=== PATIENT | female | born 1950 | race Caucasian/White ===

== ENCOUNTER 2017-12-25 06:33 | Day surgery (SDC) | payer OTHER, MEDICARE ==
--- NOTE | 2017-12-23 14:58 | RAD REPORT ---
EXAM DESCRIPTION: RADOP - Outpt Chest Pa/Lat (2 Views) - 12/23/2017 2:53 pm CLINICAL HISTORY: Smoker, hypertension. COMPARISON: 04/17/2017 TECHNIQUE: PA and lateral views of the chest were obtained. FINDINGS: The lungs are hyperexpanded compatible with COPD. The heart is upper limit of normal in si ze. No fracture or aggressive bony process. IMPRESSION: COPD without acute process identified.
--- NOTE | 2017-12-24 08:01 | EKG ---
Test Date: 2017-12-23 Test Time: 14:37:22 Audio Production Manager: TG MEASUREMENT RESULTS: Intervals: Rate: 60 DE: 152 QRSD: 94 QT: 480 QTc: 480 [place]: P: 57 DE: 152 QRS: 74 T: 74 INTERPRETIVE STATEMENTS: Sinus rhythm with premature atrial complexes Left ventricular hypertrophy with repolarization abnormality Abnormal ECG No previous ECG available for comparison Electronically Signed On 12-24-17 07:59:40 CDT by Sid Sparrow
[2017-12-25] MEDS ORDERED: NA CHLORIDE 0.9% 500 ML ONE (06:35)
[2017-12-25] MEDS ORDERED: LIDOCAINE 1% 20 ML MDV ONE (06:35)
[2017-12-25] MEDS ORDERED: MIDAZOLAM HCL 2 MG/2 ML INJ ONE ×2 (07:17→07:46)
[2017-12-25] MEDS ORDERED: FENTANYL CITR 100 MCG/2 ML ONE (07:18)
[2017-12-25] MEDS ORDERED: ATROPINE SULF 1 MG/10 ML SYR IV ONE (07:20)
--- NOTE | 2017-12-27 17:54 | OP ---
Date of Procedure: 12/25/2017 Surgeon: Abram Mcfadden MD Child Support Specialist: Gladys Ortiz. Procedure Performed: Bilateral selective carotid angiogram, bilateral renal angiogram, selective an abdominal angiogram. Indication: Severe renal artery stenosis and positive carotid Doppler. Procedure In Detail: The patient brought to the landscape and yardwork laborer as an outpatient on 12/25/2017. Prepped an d draped in the routine sterile fashion and was given 4 mg of Versed for IV sedation. A 6-Martiniquais she ath was introduced in the right common femoral artery. Angiography there locally was within normal l imits and StarClose was used to close the case. Right Tammy catheter was used to select both carot ids. She had 90% stenosis in the internal carotid artery. The left carotid had moderate stenosis. Selective renal angiogram revealed severe stenosis in the ostial right renal artery as well as the le ft renal artery. Abdominal angiogram revealed severe stenosis in the right common iliac artery and d istal aorta. The patient tolerated the procedure well. There were no complications. Blood loss was 5 cc. Total conscious sedation was 45 minutes. Final Diagnosis: Severe cerebrovascular disease. Plan: We will plan right carotid endarterectomy. She has severe distal aorta, right common iliac, a nd bilateral renal artery stenosis. I will have the films reviewed by Dr. Raffy Jenkins, who will do her right carotid and considered to having her do a surgical procedure for her renals and her iliac as w ell as her distal aorta. I think the dye load to do these procedures will probably interfere with he r kidney function. The patient will be going home today and she will see me in the office in the next few day ibeth BANGURA/HUE Voice ID: [id number] Report ID: [id number]
== END 2017-12-25 13:49 | disposition home or self-care (01) ==
LOC: CCL 06:33
DX: I65.23 Occlusion and stenosis of bilateral carotid arteries (principal); I70.1 Atherosclerosis of renal artery; I70.201 Unspecified atherosclerosis of native arteries of extremities, right leg; I70.0 Atherosclerosis of aorta; I10 Essential (primary) hypertension; E78.5 Hyperlipidemia, unspecified
CPT/HCPCS: 36222; 36252; 71046; 75625; 93005; C1893; J2250 ×2; J3010; 36200

== ENCOUNTER 2021-07-16 08:12 | Day surgery (SDC) | payer OTHER, MEDICARE ==
--- NOTE | 2021-07-13 12:44 | RAD REPORT ---
EXAM DESCRIPTION: RAD - Chest Pa And Lat (2 Views) - 07/13/2021 12:27 pm CLINICAL HISTORY: pre-cath procedure COMPARISON: December 2017 TECHNIQUE: Frontal and lateral views of the chest were obtained. FINDINGS: The lungs are fibrotic with the pattern similar to prior imaging. No acute failure, infilt rate or mass. No hilar mass or lymphadenopathy identified. Heart size is normal and central vasculature is within normal limits. No pleural effusion or pneu mothorax seen. No acute bony finding noted. No aortic abnormality. IMPRESSION: No acute cardiopulmonary process. Above detailed chest findings not clearly different from 2018 study.
[2021-07-16] MEDS ORDERED: NA CHLORIDE 0.9% 500 ML ONE (10:01)
[2021-07-16] MEDS ORDERED: HEPA 1000U/500MLS 1,000 UNIT/500 ML BAG IV ONE ×2 (10:35→10:36)
[2021-07-16] MEDS ORDERED: LIDOCAINE 1% 20 ML MDV ONE (10:35)
[2021-07-16] MEDS ORDERED: MIDAZOLAM HCL 2 MG/2 ML INJ ONE ×2 (10:45→11:04)
[2021-07-16] MEDS ORDERED: HEPARIN 5000 UNIT/ML 1 ML VIAL ONE (10:45)
[2021-07-16] MEDS ORDERED: FENTANYL CITR 100 MCG/2 ML ONE (10:45)
[2021-07-16] MEDS ORDERED: ATROPINE SULF 1 MG/10 ML SYR IV ONE (10:46)
[2021-07-16 15:13] VITALS: O2SAT 96
[2021-07-16 15:15] VITALS: BP 154/60; TEMP 98.2
--- NOTE | 2021-08-15 08:53 | OP ---
Date of Procedure: 07/16/2021 Surgeon: Abram Mcfadden MD Ip Attorney: Mr. Christiansen. Procedure: Abdominal angiogram. Indication: Peripheral arterial disease, known distal aortic stenosis. Procedure In Detail: The patient was brought to the labor and delivery nurse on 07/16/2021, prepped and draped in th e routine sterile fashion. Given Versed and fentanyl for sedation. A 6-English sheath introduced in the right common femoral artery successfully. Angiography there was normal. Seldinger technique was used. Angio-Seal was used to close the case. A pigtail catheter was advanced over the distal aorta up to about T12 level. Angiography there showed a 90% bilateral stenosis of the renal artery. She had a 90% stenosis of the distal aorta. The patient tolerated the procedure well. There were no com plications. Blood loss was 5 cc. Postoperative Diagnoses: Peripheral arterial disease, severe distal aortic disease, severe bilateral renal artery stenosis. The patient is normotensive. We will proceed with an intervention as an outpatient for distal aorta with an angioplasty, possible stent. I will discuss the case further with Dr. Teixeira. The patient w ill remain in the hospital for 2 hours of bedrest and she will go home and I will make arrangements f or her intervention as an outpatient. Anesthesia: Total conscious sedation was 30 minutes. NB/MODL Voice ID: [id number] Report ID: [id number]
== END 2021-07-16 12:52 | disposition home or self-care (01) ==
LOC: CCL 08:12
DX: I70.0 Atherosclerosis of aorta (principal); I70.1 Atherosclerosis of renal artery; I73.9 Peripheral vascular disease, unspecified; I65.23 Occlusion and stenosis of bilateral carotid arteries; I35.1 Nonrheumatic aortic (valve) insufficiency; I10 Essential (primary) hypertension; E78.2 Mixed hyperlipidemia; F17.210 Nicotine dependence, cigarettes, uncomplicated; Z20.822 Contact with and (suspected) exposure to COVID-19; Z82.49 Family history of ischemic heart disease and other diseases of the circulatory system
CPT/HCPCS: 93005; 71046; 36200; 75630; U0003; C1893; J2250 ×2; J3010; J7040; J1644 ×2

== ENCOUNTER 2021-08-21 09:43 | Observation (INO) | payer OTHER, MEDICARE ==
--- OUTSIDE RECORDS SUMMARY | 2021-08-21 09:46 | XMS REPORT | Continuity of Care Document ---
:1950 Author Organization [facility] t Address [address] [place] [address] Care Team Providers Name Role Phone Puneet Attending Clinician Unavailable NICOLE JENKINS Attending Clinician Unavailable Bev Lin Admitting Clinician Unavailable NICOLE JENKINS Admitting Clinician Unavailable Payers Payer Name Policy Type Policy Number Effective Date Expiration Date S ource Problems This patient has no known problems. Allergies, Adverse Reactions, Alerts Allergy Allergy Status Severity Reaction(s) Onset Inactive Treating Comm ents Source Name Type Date Date Clinician No Known DA Active U 2020-09 [facility] Allergie 09-26 Clear s 00:00: Bone [address] [place] [address] Medications This patient has no known medications. Procedures This patient has no known procedures. Encounters Start End Encounter Admission Attending Care Care Encounter Source Date/Time Date/Time Type Type Clinicians Facility Department ID 2021-07-27 Inpatient AJ Ambrose OUTD [id number] [facility] 13:30:00 Jose R [id number] [facility] 2021 2021 Outpatient MJ AmbroseFAN OUTD [id number] [facility] 05:20:00 05:20:00 Jose R [id number] [facility] 2021 2021 Outpatient AJ AmbroseCL [id number] [facility] 05:20:00 05:20:00 Jose R 98 [facility] Results Test Description Test Time Test Comments Results Result Comments Source ACT-ISTAT 2021 09:54:00 Test Item Value Reference Range Interpretation Comme nts ACT-ISTAT (test code = ACTI) 243 SEC 74-137 H Performed by certified diesel plant operator at [facility] [id number] 09:15:00 Test Item Value Reference Range Interpretation Comments ACT-ISTAT (test code 261 SEC 74-137 H Perform ed by certified = ACTI) diesel plant operator at [facility] Novel Coronavirus 2019 [id number] 03:32:00 Test Item Value Reference Range Interpretation Comments Novel Coronavirus Negative Negative Positive r esults are 2019 Inhouse (test indicativ e of the presence code = COVNONPUI) ofSARS-CoV -2 RNA, clinical correlation wit h patient historyand othe r diagnostic info rmation is necessary to determinepatien t infection status. Positiv e results do not rule out bacterial infection or co -infection with other viru ses. Negative result s do not preclude SARS-C oV-2 infection andsh ould not be used as the jose e basis for patient managementdecis ions. Negative result s must be combined with otherclinical observations, p atient history, and epidemiological information . Detection of SARS-CoV-2 RNA may be affe cted bysample collec tion methods, storag e conditions, and /or stageof infection. Monserrat l RNA mutations, vacc inations, antiviraltherap eutics, antibiotics, chemotherapeuti c orimmunosuppres mitali drugs have not been e valuated for effectson d etection. Results are for the identification of SARS-CoV-2 RNA usingthe Prieto M2000 Sy stem under the FDA Emergen cy UseAuthorizatio n. The testing is perf ormed by personneltraine d in the procedures for the Prieto M2000 molecular diagnostic SARS-CoV-2 assa y in vitro. BASIC METABOLIC [id number] 16:06:00 Test Item Value Reference Range Interpretation Comments SODIUM (test code = NA) 139 mEq/L 134-147 N POTASSIUM (test code = 3.0 mEq/L 3.4-5.0 L K) CHLORIDE (test code = 101 mEq/L 100-108 N CL) CARBON DIOXIDE (test 28 mEq/l 21-33 N code = CO2) ANION GAP (test code = 13 0-20 N GAP) GLUCOSE (test code = 168 mg/dL 70-110 H GLU) BLOOD UREA NITROGEN 10 mg/dL 7-18 N (test code = BUN) GLOMERULAR FILTRATION 83.0 80-90 N Units of measure = RATE (test code = GFR) ml/mi n/1.73 m2 CREATININE (test code = 0.7 mg/dL 0.6-1.3 N CREAT) CALCIUM (test code = 9.6 mg/dL 8.0-10.5 N CA) PROTHROMBIN [id number] 15:54:00 Test Item Value Reference Range Interpretation Comments PROTHROMBIN TIME 11.6 SECONDS 9.3-12.9 N PATIENT (test code = PTP) INTERNATIONAL NORMAL 1.0 0.8-1.2 N TARGET RATIO (test code = INR BY IN DICATION INR) Indication INR1. Prophyl axis of venous thrombos is 2.0 - 3. 0 (orthopedic patricia lilli), Prophylaxis of venous thrombos is (other than hig h-risk surgery), Essence tment of Deep Vein Thrombosis/Pulm onary Embolism, Preve ntion of systemic emb olism - Tissue heart va lves, Acute Myocardia l Infarction (to prevent systemic embo lism), Valvular heart disease, Atri al Fibrillation, Bileaflet mecha nical valve in aortic position.2. Mec hanical prosthetic valv es (high risk), 2.5 - 3.5 Presence of Lupus Anticoagu lant or Antiphospholi pid Antibodies, Pre vention of systemic e mbolism - Acute Myocard ial Infarction (t o prevent recurre nt infarct). CBC W/AUTO [id number] 15:48:00 Test Item Value Reference Range Interpretation Comments WHITE BLOOD CELL (test code = 6.0 x10 3/uL 4.5-11.0 N WBC) RED BLOOD CELL (test code = 4.18 x10 6/uL 3.54-5.02 N RBC) HEMOGLOBIN (test code = HGB) 9.4 g/dL 11.0-15.0 L HEMATOCRIT (test code = HCT) 31.7 % 33.0-45.0 L MEAN CELL VOLUME (test code = 75.8 fL 81.0-99.0 L MCV) MEAN CELL HGB (test code = MCH) 22.5 pg 27.0-33.0 L MEAN CELL HGB CONCETRATION 29.7 g/dL 33.0-37.0 L (test code = MCHC) RED CELL DISTRIBUTION WIDTH CV 18.1 % 11.5-14.5 H (test code = RDW) RED CELL DISTRIBUTION WIDTH SD 49.3 fL 37.0-54.0 N (test code = RDW-SD) PLATELET COUNT (test code = 425 x10 3/uL 150-400 H PLT) MEAN PLATELET VOLUME (test code 11.6 fL 7.0-9.0 H = MPV) NEUTROPHIL % (test code = NT%) 59.0 % 56.0-77.0 N IMMATURE GRANULOCYTE % (test 0.3 % 0.0-2.0 N code = IG%) LYMPHOCYTE % (test code = LY%) 27.8 % 14.0-32.0 N MONOCYTE % (test code = MO%) 9.7 % 4.8-9.0 H EOSINOPHIL % (test code = EO%) 2.5 % 0.3-3.7 N BASOPHIL % (test code = BA%) 0.7 % 0.0-2.0 N NUCLEATED RBC % (test code = 0.0 % 0-0 N NRBC%) NEUTROPHIL # (test code = NT#) 3.52 x10 3/uL 2.0-7.6 N IMMATURE GRANULOCYTE # (test 0.02 x10 3/uL 0.00-0.03 N code = IG#) LYMPHOCYTE # (test code = LY#) 1.66 x10 3/uL 1.0-3.8 N MONOCYTE # (test code = MO#) 0.58 x10 3/uL 0.1-0.8 N EOSINOPHIL # (test code = EO#) 0.15 x10 3/uL 0.0-0.2 N BASOPHIL # (test code = BA#) 0.04 x10 3/uL 0.0-0.2 N NUCLEATED RBC # (test code = 0.00 x10 3/uL 0.0-0.1 N NRBC#) MANUAL DIFF REQUIRED (test code NO = MDIFF) - XR CHEST 2 [id number] [facility]:00[facility] 1950 Sex: F FAX: Enrique Sheldon MD [phone] [place]: St: PRE FAX: Jose R Browning MD [phone] Name: ALLIE OROSCO [facility] : 1950 Age/S: 70/F [address] [place] [address] Unit #: [id number] Loc: [place] [address] Phys: Jose R Teixeira MD Acct: [id number] Dis Date: Status[place] [facility] [place] #: [phone] Exam Date: 07/27/20211520 FAX #: [phone] Reason: PREOP EXAMS: CPT CODE: [id number] XR CHEST 2 V [id number] PROCEDURE INFORMATION: Exam: XR Chest Exam date and time: 07/27/2021 2:55 PM Age: 70 years old Clinical indication: Condition or disease; Other: Pre op; Additional info: Preop TECHNIQUE: Imaging protocol: XR of the chest. Views: 2 views. PA and Lateral COMPARISON: No relevant prior studies available. FINDINGS: Lungs: Prominent interstitial pattern throughout both lungs is chronic in nature. No acute consolidation is identified. Pleural spaces: No pleural effusion. No pneumothorax. Heart/Mediastinum: The heart size is normal. Vasculature: Tortuous aorta contains calcifications. Bones/joints: No acute abnormality. IMPRESSION: No acute cardiopulmonary process. at 1542 Reported and signed by: Meek King M.D. CC: Enrique Lin MD; Jose R Teixeira MD Technologist: RT Kristy(R) Trnscrd Date/Time/By: 07/27/2021 ([id number]) : By: [email or web address] Orig Print D/T: S: 07/27/2021 ([id number]) PAGE 1 Signed ReportTISSUE EXAM 2018-01-20 13:42:00Surgical Pathology Report Case: [id number] Authorizing Provider: Raffy Jenkins MD Collected: 01/13/2018 0855 Ordering Location: [facility] Received: 01/13/2018 0937 PERIOPERATIVE SERVICES Pathologist: Petr Gallegos MD Specimen: Plaque, RT Carotid plaque ARTERY, RIGHT CAROTID, ENDARTERECTOMY:CALCIFIC ATHEROSCLEROTIC PLAQUE Signing Pathologist Direct Phone Line: [phone]; [phone] stenosis Right carotid plaque Specimen is received in a formalin- filled container labeled with the patient's information and labeled "right carotid plaque" and consists of an opened calcified tubular shaped segment of tissue measuring 2 cm in length and 1.5 cm in circumference. Food Products Sales Representative sections are submitted in A1 for decalcification. CG/ew PerformedPHOSPHORUS 2018-01-15 06:11:00 Test Item Value Reference Range Interpretation Comments PHOSPHORUS (BEAKER) (test code = 3.4 mg/dL 2.3-4.7 604) [id number] 06:11:00 Test Item Value Reference Range Interpretation Comments MAGNESIUM (BEAKER) (test code = 1.8 mg/dL 1.6-2.6 627) BASIC METABOLIC [id number] 06:11:00 Test Item Value Reference Range Interpretation Comments SODIUM (BEAKER) 139 meq/L 136-145 (test code = 381) POTASSIUM (BEAKER) 3.2 meq/L 3.5-5.1 L (test code = 379) CHLORIDE (BEAKER) 99 meq/L 98-107 (test code = 382) CO2 (BEAKER) (test 27 meq/L 22-29 code = 355) BLOOD UREA NITROGEN 7 mg/dL 7-21 (BEAKER) (test code = 354) CREATININE (BEAKER) 0.66 mg/dL 0.57-1.25 (test code = 358) GLUCOSE RANDOM 105 mg/dL 70-105 (BEAKER) (test code = 652) CALCIUM (BEAKER) 9.7 mg/dL 8.4-10.2 (test code = 697) EGFR (BEAKER) (test 90 mL/min/1.73 ESTIMA OZIEL GFR IS code = 1092) sq m NOT ACCURATE CREATININE CLEARANCE IN PREDICTING GLOMERULAR FILTRATION RATE . ESTIMATED GFR I S NOT APPLICABLE FOR DIALYSIS PATIEN TS. CBC W/PLT COUNT & AUTO [id number] 05:47:00 Test Item Value Reference Range Interpretation Comments WHITE BLOOD CELL COUNT (BEAKER) 8.5 K/ L 3.5-10.5 (test code = 775) RED BLOOD CELL COUNT (BEAKER) 3.87 M/ L 3.93-5.22 L (test code = 761) HEMOGLOBIN (BEAKER) (test code = 11.3 GM/DL 11.2-15.7 410) HEMATOCRIT (BEAKER) (test code = 35.6 % 34.1-44.9 411) MEAN CORPUSCULAR VOLUME (BEAKER) 92.0 fL 79.4-94.8 (test code = 753) MEAN CORPUSCULAR HEMOGLOBIN 29.2 pg 25.6-32.2 (BEAKER) (test code = 751) MEAN CORPUSCULAR HEMOGLOBIN CONC 31.7 GM/DL 32.2-35.5 L (BEAKER) (test code = 752) RED CELL DISTRIBUTION WIDTH 15.1 % 11.7-14.4 H (BEAKER) (test code = 412) PLATELET COUNT (BEAKER) (test 230 K/CU MM 150-450 code = 756) MEAN PLATELET VOLUME (BEAKER) 12.2 fL 9.4-12.3 (test code = 754) NUCLEATED RED BLOOD CELLS 0 /100 WBC 0-0 (BEAKER) (test code = 413) NEUTROPHILS RELATIVE PERCENT 67 % (BEAKER) (test code = 429) LYMPHOCYTES RELATIVE PERCENT 16 % (BEAKER) (test code = 430) MONOCYTES RELATIVE PERCENT 15 % (BEAKER) (test code = 431) EOSINOPHILS RELATIVE PERCENT 3 % (BEAKER) (test code = 432) BASOPHILS RELATIVE PERCENT 0 % (BEAKER) (test code = 437) NEUTROPHILS ABSOLUTE COUNT 5.69 K/ L 1.56-6.13 (BEAKER) (test code = 670) LYMPHOCYTES ABSOLUTE COUNT 1.32 K/ L 1.18-3.74 (BEAKER) (test code = 414) MONOCYTES ABSOLUTE COUNT (BEAKER) 1.23 K/ L 0.24-0.36 H (test code = 415) EOSINOPHILS ABSOLUTE COUNT 0.21 K/ L 0.04-0.36 (BEAKER) (test code = 416) BASOPHILS ABSOLUTE COUNT (BEAKER) 0.03 K/ L 0.01-0.08 (test code = 417) IMMATURE GRANULOCYTES-RELATIVE 0 % 0-1 PERCENT (BEAKER) (test code = 2801) [id number] 02:49:00 Test Item Value Reference Range Interpretation Comments MAGNESIUM (BEAKER) (test code = 1.7 mg/dL 1.6-2.6 627) BASIC METABOLIC [id number] 02:49:00 Test Item Value Reference Range Interpretation Comments SODIUM (BEAKER) 140 meq/L 136-145 (test code = 381) POTASSIUM (BEAKER) 3.1 meq/L 3.5-5.1 L (test code = 379) CHLORIDE (BEAKER) 102 meq/L 98-107 (test code = 382) CO2 (BEAKER) (test 26 meq/L 22-29 code = 355) BLOOD UREA NITROGEN 7 mg/dL 7-21 (BEAKER) (test code = 354) CREATININE (BEAKER) 0.67 mg/dL 0.57-1.25 (test code = 358) GLUCOSE RANDOM 97 mg/dL 70-105 (BEAKER) (test code = 652) CALCIUM (BEAKER) 9.6 mg/dL 8.4-10.2 (test code = 697) EGFR (BEAKER) (test 88 mL/min/1.73 ESTIMA OZIEL GFR IS code = 1092) sq m NOT ACCURATE CREATININE CLEARANCE IN PREDICTING GLOMERULAR FILTRATION RATE . ESTIMATED GFR I S NOT APPLICABLE FOR DIALYSIS PATIEN TS. CBC W/PLT COUNT & AUTO [id number] 02:35:00 Test Item Value Reference Range Interpretation Comments WHITE BLOOD CELL COUNT (BEAKER) 9.7 K/ L 3.5-10.5 (test code = 775) RED BLOOD CELL COUNT (BEAKER) 4.05 M/ L 3.93-5.22 (test code = 761) HEMOGLOBIN (BEAKER) (test code = 11.9 GM/DL 11.2-15.7 410) HEMATOCRIT (BEAKER) (test code = 37.4 % 34.1-44.9 411) MEAN CORPUSCULAR VOLUME (BEAKER) 92.3 fL 79.4-94.8 (test code = 753) MEAN CORPUSCULAR HEMOGLOBIN 29.4 pg 25.6-32.2 (BEAKER) (test code = 751) MEAN CORPUSCULAR HEMOGLOBIN CONC 31.8 GM/DL 32.2-35.5 L (BEAKER) (test code = 752) RED CELL DISTRIBUTION WIDTH 15.1 % 11.7-14.4 H (BEAKER) (test code = 412) PLATELET COUNT (BEAKER) (test 257 K/CU MM 150-450 code = 756) MEAN PLATELET VOLUME (BEAKER) 12.3 fL 9.4-12.3 (test code = 754) NUCLEATED RED BLOOD CELLS 0 /100 WBC 0-0 (BEAKER) (test code = 413) NEUTROPHILS RELATIVE PERCENT 65 % (BEAKER) (test code = 429) LYMPHOCYTES RELATIVE PERCENT 21 % (BEAKER) (test code = 430) MONOCYTES RELATIVE PERCENT 12 % (BEAKER) (test code = 431) EOSINOPHILS RELATIVE PERCENT 2 % (BEAKER) (test code = 432) BASOPHILS RELATIVE PERCENT 0 % (BEAKER) (test code = 437) NEUTROPHILS ABSOLUTE COUNT 6.30 K/ L 1.56-6.13 H (BEAKER) (test code = 670) LYMPHOCYTES ABSOLUTE COUNT 1.98 K/ L 1.18-3.74 (BEAKER) (test code = 414) MONOCYTES ABSOLUTE COUNT (BEAKER) 1.11 K/ L 0.24-0.36 H (test code = 415) EOSINOPHILS ABSOLUTE COUNT 0.22 K/ L 0.04-0.36 (BEAKER) (test code = 416) BASOPHILS ABSOLUTE COUNT (BEAKER) 0.03 K/ L 0.01-0.08 (test code = 417) IMMATURE GRANULOCYTES-RELATIVE 0 % 0-1 PERCENT (BEAKER) (test code = 2801) PROTHROMBIN [id number] 07:00:00 Test Item Value Reference Range Interpretation Comments PROTIME (BEAKER) (test code = 13.2 seconds 11.7-14.7 759) INR (BEAKER) (test code = 370) 1.0 <=5.9 RECOMMENDED COUMADIN/WARFARIN INR THERAPY RANGESSTANDARD DOSE: 2.0 - 3.0 Includes: PROPHYLAXIS forvenous thrombosis, systemic embolization; TREATMENT for venous thrombosis and/or pulmonary embolus.HIGH RISK: Target INR is 2.5-3.5 for patients with mechanical heart valves.BASIC METABOLIC [id number] 06:54:00 Test Item Value Reference Range Interpretation Comments SODIUM (BEAKER) 142 meq/L 136-145 (test code = 381) POTASSIUM (BEAKER) 2.9 meq/L 3.5-5.1 L (test code = 379) CHLORIDE (BEAKER) 101 meq/L 98-107 (test code = 382) CO2 (BEAKER) (test 27 meq/L 22-29 code = 355) BLOOD UREA NITROGEN 13 mg/dL 7-21 (BEAKER) (test code = 354) CREATININE (BEAKER) 0.63 mg/dL 0.57-1.25 (test code = 358) GLUCOSE RANDOM 96 mg/dL 70-105 (BEAKER) (test code = 652) CALCIUM (BEAKER) 9.8 mg/dL 8.4-10.2 (test code = 697) EGFR (BEAKER) (test 95 mL/min/1.73 ESTIMA OZIEL GFR IS code = 1092) sq m NOT ACCURATE CREATININE CLEARANCE IN PREDICTING GLOMERULAR FILTRATION RATE . ESTIMATED GFR I S NOT APPLICABLE FOR DIALYSIS PATIEN TS. CBC W/PLT COUNT & AUTO [id number] 06:34:00 Test Item Value Reference Range Interpretation Comments WHITE BLOOD CELL COUNT (BEAKER) 7.3 K/ L 3.5-10.5 (test code = 775) RED BLOOD CELL COUNT (BEAKER) 3.94 M/ L 3.93-5.22 (test code = 761) HEMOGLOBIN (BEAKER) (test code = 11.9 GM/DL 11.2-15.7 410) HEMATOCRIT (BEAKER) (test code = 35.6 % 34.1-44.9 411) MEAN CORPUSCULAR VOLUME (BEAKER) 90.4 fL 79.4-94.8 (test code = 753) MEAN CORPUSCULAR HEMOGLOBIN 30.2 pg 25.6-32.2 (BEAKER) (test code = 751) MEAN CORPUSCULAR HEMOGLOBIN CONC 33.4 GM/DL 32.2-35.5 (BEAKER) (test code = 752) RED CELL DISTRIBUTION WIDTH 14.8 % 11.7-14.4 H (BEAKER) (test code = 412) PLATELET COUNT (BEAKER) (test 242 K/CU MM 150-450 code = 756) MEAN PLATELET VOLUME (BEAKER) 11.9 fL 9.4-12.3 (test code = 754) NUCLEATED RED BLOOD CELLS 0 /100 WBC 0-0 (BEAKER) (test code = 413) NEUTROPHILS RELATIVE PERCENT 63 % (BEAKER) (test code = 429) LYMPHOCYTES RELATIVE PERCENT 22 % (BEAKER) (test code = 430) MONOCYTES RELATIVE PERCENT 10 % (BEAKER) (test code = 431) EOSINOPHILS RELATIVE PERCENT 4 % (BEAKER) (test code = 432) BASOPHILS RELATIVE PERCENT 0 % (BEAKER) (test code = 437) NEUTROPHILS ABSOLUTE COUNT 4.60 K/ L 1.56-6.13 (BEAKER) (test code = 670) LYMPHOCYTES ABSOLUTE COUNT 1.64 K/ L 1.18-3.74 (BEAKER) (test code = 414) MONOCYTES ABSOLUTE COUNT (BEAKER) 0.76 K/ L 0.24-0.36 H (test code = 415) EOSINOPHILS ABSOLUTE COUNT 0.27 K/ L 0.04-0.36 (BEAKER) (test code = 416) BASOPHILS ABSOLUTE COUNT (BEAKER) 0.02 K/ L 0.01-0.08 (test code = 417) IMMATURE GRANULOCYTES-RELATIVE 0 % 0-1 PERCENT (BEAKER) (test code = 2801) RAD, CHEST, 1 VIEW, NON [id number] 06:19:00Reason for exam:->cv pre opShould this be performed at the bedside?->YesFINAL REPORT RAD, CHEST, 1 VIEW, NON DEPT INDICATION: cv pre op COMPARISON: None TECHNIQUE: Frontal and lateral views of the chest. FINDINGS: Mild hyperinflation.Cardiomediastinal silhouette within normal limits.Diffuse interstitial prominence which is probably chronic.No acute osseous abnormality. IMPRESSION:No acute cardiopulmonary abnormality. Signed: Kashmir Edwardseport Verified Date/Time: 01/13/2018 06:19:48 Reading Location: [facility] C013T Transitional Reading Room HEMOGLOBIN [id number] 14:38:00 Test Item Value Reference Range Interpretation Comments HEMOGLOBIN A1C (BEAKER) (test code = 5.1 % 4.3-6.1 368)
[2021-08-21] MEDS ORDERED: PANTOPRAZOLE 40 MG INJ ONE ×2 (10:09→10:52)
[2021-08-21] MEDS ORDERED: NA CHLORIDE 0.9% 1,000 ML ONE (10:09)
[2021-08-21 10:33] LABS: Absolute Lymphocytes (CBC) 1.3 K/uL (0.7-4.9); Basophils % 1.4 % (0-1.3); Hematocrit 25.3 % (36.0-45.0); Lymphocytes % 18.8 % (15.3-44.8); MPV 9.3 fL (7.6-11.3)
[2021-08-21 10:37] LABS: Protime INR 0.91
[2021-08-21] MEDS ORDERED: IPRATROPIUM BROM 0.5MG/2.5ML ONE (10:52)
[2021-08-21] MEDS ORDERED: LEVALBUTEROL 1.25 MG/3 ML NEB ONE (10:52)
[2021-08-21] MEDS ORDERED: METHYLPREDNISOLONE 125 MG INJ ONE (10:52)
--- NOTE | 2021-08-21 10:56 | RAD REPORT ---
EXAM DESCRIPTION: RAD - Chest Single View - 08/21/2021 10:26 am CLINICAL HISTORY: COUGH COMPARISON: Chest Pa And Lat (2 Views) dated 07/13/2021; CHEST PA AND LAT 2 VIEW dated 12/21/2014 FINDINGS: Lines: None. Lungs: No evidence of edema or pneumonia. Pleural: No significant pleural effusions or pneumothorax. Cardiac: The heart size is within normal limits. Bones: No acute fractures. Other: IMPRESSION: No acute cardiopulmonary disease.
--- NOTE | 2021-08-21 11:03 | ER ---
Nurse's Notes [facility] [place] Name: Naida Estrada Age: 71 yrs Sex: Female : 1950 Arrival Date: 08/21/2021 Time: 09:43 Bed 20 Private MD: Faizan Andrade H Diagnosis: GI Bleed/ Gastrointestinal hemorrhage, unspecified-upper;Anemia, unspecified;Tobacco abuse counseling;Tobacco use;COPD/ Chronic obstructive pulmonary disease with (acute) exacerbation Presentation: 08/21 09:56 Chief complaint: Spouse and/or significant other states: had some blood work done iw yesterday and her Hgb level was at 6, has been tired and dizzy recently, lab work done by Dr. Mcfadden. Coronavirus screen: At this time, the client does not indicate any symptoms associated with coronavirus-19. Ebola Screen: Patient negative for fever greater than or equal to 101.5 degrees Fahrenheit, and additional compatible Ebola Virus Disease symptoms Patient denies exposure to infectious person. Patient denies travel to an Ebola-affected area in the 21 days before illness onset. No symptoms or risks identified at this time. Initial Sepsis Screen: Does the patient meet any 2 criteria? No. Patient's initial sepsis screen is negative. Does the patient have a suspected source of infection? No. Patient's initial sepsis screen is negative. Risk Assessment: Do you want to hurt yourself or someone else? Patient reports no desire to harm self or others. Onset of symptoms was August 21, 2021. 09:56 Method Of Arrival: Wheelchair iw 09:56 Acuity: CAROLE 3 iw Triage Assessment: 10:00 General: Appears ill, Behavior is calm, cooperative, appropriate for age. Pain: Denies ll1 pain. 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 Full function Gait is steady, Speech is normal, Facial symmetry appears normal, Reports dizziness, weakness. Cardiovascular: Heart tones S1 S2. Respiratory: Reports cough that is non-productive, Airway is patent Trachea midline Breath sounds are clear bilaterally. GI: No deficits noted. Musculoskeletal: Reports weakness in generalized. Historical: - Allergies: 09:57 No Known Allergies; iw - Immunization history:: Adult Immunizations Client reports receiving the 2nd dose of the Covid vaccine. - Social history:: Smoking status: Patient reports the use of cigarette tobacco products, smokes one-half pack cigarettes per day. - Family history:: not pertinent. Screenin:01 Abuse screen: Denies threats or abuse. Nutritional screening: No deficits noted. ll1 Tuberculosis screening: No symptoms or risk factors identified. Fall Risk IV access (20 points). Ambulatory Aid- Crutches/Cane/Walker (15 pts). Gait- Weak (10 pts.). Total Bauer Fall Scale indicates High Risk Score (45 or more points). Fall prevention measures have been instituted. Side Rails Up X 2 Placed Close to Nursing Station Frequent Obs/Assessments Occuring Family Present and informed to notify staff if the need to leave the bedside As available patient and family educated on Fall Prevention Program and Strategies. Assessment: 11:00 Reassessment: No changes from previously documented assessment. Patient and/or family ll1 updated on plan of care and expected duration. Pain level reassessed. Patient is alert, oriented x 3, equal unlabored respirations, skin warm/dry/pink. 12:00 Reassessment: No changes from previously documented assessment. Patient and/or family ll1 updated on plan of care and expected duration. Pain level reassessed. Patient is alert, oriented x 3, equal unlabored respirations, skin warm/dry/pink. 13:00 Reassessment: No changes from previously documented assessment. Patient and/or family ll1 updated on plan of care and expected duration. Pain level reassessed. Patient is alert, oriented x 3, equal unlabored respirations, skin warm/dry/pink. 14:00 Reassessment: No changes from previously documented assessment. Patient and/or family ll1 updated on plan of care and expected duration. Pain level reassessed. Patient is alert, oriented x 3, equal unlabored respirations, skin warm/dry/pink. 15:00 Reassessment: No changes from previously documented assessment. Patient and/or family ll1 updated on plan of care and expected duration. Pain level reassessed. Patient is alert, oriented x 3, equal unlabored respirations, skin warm/dry/pink. Vital Signs: 09:56 BP 208 / 76; Pulse 71; Resp 16; Temp 97.8(O); Pulse Ox 100% on R/A; Weight 58.97 kg; iw Height 5 ft. 7 in. (170.18 cm); 10:01 BP 164 / 74; Pulse 72; Resp 16; Pulse Ox 100% on R/A; ll1 13:10 BP 168 / 62; Pulse 67; Resp 16; Temp 98.2; Pulse Ox 100% on R/A; ll1 14:57 BP 167 / 62; Pulse 66; Resp 15; Temp 98.5; Pulse Ox 97% on R/A; ll1 09:56 Body Mass Index 20.36 (58.97 kg, 170.18 cm) iw ED Course: 09:43 Patient arrived in ED. am2 09:44 Faizan Andrade MD is Private Physician. am2 09:57 Triage completed. iw 10:00 Elton Faust, CARMINA is Primary Nurse. ll1 10:00 Arm band placed on Patient placed in an exam room, on a stretcher. ll1 10:01 Patient has correct armband on for positive identification. Bed in low position. Call ll1 light in reach. Side rails up X2. Pulse ox on. NIBP on. 10:03 Brenton Gardiner MD is Attending Physician. abhishek 10:05 Inserted saline lock: 20 gauge in right antecubital area, using aseptic technique. ll1 Blood collected. 10:27 XRAY Chest (1 view) In Process Unspecified. EDMS 11:00 Juventino Richards DO is Hospitalizing Provider. abhishek 11:16 Inserted saline lock: 20 gauge in left antecubital area, using aseptic technique. Blood ll1 collected. 15:02 No provider procedures requiring assistance completed. Patient did not have IV access ll1 during this emergency room visit. Administered Medications: 10:32 Drug: NS 0.9% 1000 ml Route: IV; Rate: 125 ml/hr; Site: right antecubital; ll1 14:20 Follow up: Response: No adverse reaction; IV Status: Completed infusion; IV Intake: ll1 1000ml 10:32 Drug: ProTONIX (pantoprazole) 40 mg Route: IVP; Site: right antecubital; ll1 11:28 Follow up: Response: No adverse reaction ll1 11:15 Drug: ProTONIX (pantoprazole) 40 mg Route: IVP; Site: right antecubital; ll1 14:20 Follow up: Response: No adverse reaction ll1 11:15 Drug: ProTONIX (pantoprazole) 8 mg/hr Route: IV; Rate: 25 ml/hr; Site: right ll1 antecubital; 15:10 Follow up: IV Status: Infusion continued upon admission iw 11:15 Drug: SOLU-Medrol (methylPrednisoLONE) 125 mg Route: IVP; Site: right antecubital; ll1 11:28 Follow up: Response: No adverse reaction ll1 11:28 Drug: Xopenex (levalbuterol) 2.5 mg Route: Inhalation; ll1 14:21 Follow up: Response: No adverse reaction ll1 11:28 Drug: AtroVENT (ipratropium) Aerosol 0.5 mg Route: Inhalation; ll1 14:21 Follow up: Response: No adverse reaction ll1 14:14 Drug: Ativan (LORazepam) 0.5 mg Route: IVP; Site: right antecubital; ll1 15:09 Follow up: Response: No adverse reaction iw 14:44 Drug: Ativan (LORazepam) 0.5 mg Route: IVP; Site: left antecubital; ll1 15:09 Follow up: Response: No adverse reaction iw Intake: 14:20 IV: 1000ml; Total: 1000ml. ll1 Outcome: 11:02 Decision to Hospitalize by Provider. abhishek 15:01 Admitted to Tele accompanied by tech, via stretcher, room 409, on monitor, with chart, ll1 Report called to Diana Tamayo RN on 15:01 Condition: stable 15:01 Instructed on the need for admit. 15:10 Patient left the ED. iw Signatures: Dispatcher [employer] Brenton Chung MD MD cha Williams, Irene, RN RN iw Tracie Corbett Lynsay, RN RN ll1 Corrections: (The following items were deleted from the chart) 09:58 09:56 BP 208 / 76; Pulse 71bpm; Resp 16bpm; Pulse Ox 100% RA; 58.97 kg; Height 5 ft. 7 iw in.; BMI: 20.3; iw
--- NOTE | 2021-08-21 11:03 | EDPHYS ---
Physician Documentation [facility] Name: Naida Estrada Age: 71 yrs Sex: Female : 1950 Arrival Date: 08/21/2021 Time: 09:43 Bed 20 Private MD: Faizan Andrade H ED Physician Brenton Gardiner HPI: 08/21 10:52 This 71 yrs old Female presents to ER via Wheelchair with complaints of Low abhishek hemoglobin, General Weakness, Dizziness. 10:52 The patient presents with dizziness, feeling faint, generalized weakness, abhishek lightheadedness. Onset: The symptoms/episode began/occurred 2 day(s) ago. Context: occurred at an unknown location. Modifying factors: The symptoms are alleviated by lying down, the symptoms are aggravated by standing up, changing position. Associated signs and symptoms: Pertinent positives: near-syncope, shortness of breath. Severity of symptoms: At their worst the symptoms were moderate in the emergency department the symptoms are unchanged. Severity of symptoms: At their worst the symptoms were. Patient's baseline: Neuro: alert and fully oriented. The patient has not experienced similar symptoms in the past. Historical: - Allergies: 09:57 No Known Allergies; iw - Immunization history:: Adult Immunizations Client reports receiving the 2nd dose of the Covid vaccine. - Social history:: Smoking status: Patient reports the use of cigarette tobacco products, smokes one-half pack cigarettes per day. - Family history:: not pertinent. ROS: 10:52 Constitutional: Negative for fever, chills, and weight loss, Eyes: Negative for injury, abhishek pain, redness, and discharge, ENT: Negative for injury, pain, and discharge, Neck: Negative for injury, pain, and swelling, Cardiovascular: Negative for chest pain, palpitations, and edema, Abdomen/GI: Negative for abdominal pain, nausea, vomiting, diarrhea, and constipation, Back: Negative for injury and pain, : Negative for injury, bleeding, discharge, and swelling, MS/Extremity: Negative for injury and deformity, Skin: Negative for injury, rash, and discoloration, Neuro: Negative for headache, weakness, numbness, tingling, and seizure, Psych: Negative for depression, anxiety, suicide ideation, homicidal ideation, and hallucinations, Allergy/Immunology: Negative for hives, rash, and allergies, Endocrine: Negative for neck swelling, polydipsia, polyuria, polyphagia, and marked weight changes, Hematologic/Lymphatic: Negative for swollen nodes, abnormal bleeding, and unusual bruising. 10:52 Respiratory: Positive for shortness of breath, on exertion. Exam: 10:52 Constitutional: This is a well developed, well nourished patient who is awake, alert, abhishek and in no acute distress. Head/Face: Normocephalic, atraumatic. Eyes: Pupils equal round and reactive to light, extra-ocular motions intact. Lids and lashes normal. Conjunctiva and sclera are non-icteric and not injected. Cornea within normal limits. Periorbital areas with no swelling, redness, or edema. ENT: Nares patent. No nasal discharge, no septal abnormalities noted. Tympanic membranes are normal and external auditory canals are clear. Oropharynx with no redness, swelling, or masses, exudates, or evidence of obstruction, uvula midline. Mucous membranes moist. Neck: Trachea midline, no thyromegaly or masses palpated, and no cervical lymphadenopathy. Supple, full range of motion without nuchal rigidity, or vertebral point tenderness. No Meningismus. Chest/axilla: Normal chest wall appearance and motion. Nontender with no deformity. No lesions are appreciated. Cardiovascular: Regular rate and rhythm with a normal S1 and S2. No gallops, murmurs, or rubs. Normal PMI, no JVD. No pulse deficits. Abdomen/GI: Soft, non-tender, with normal bowel sounds. No distension or tympany. No guarding or rebound. No evidence of tenderness throughout. Back: No spinal tenderness. No costovertebral tenderness. Full range of motion. Female : Normal external genitalia. Skin: Warm, dry with normal turgor. Normal color with no rashes, no lesions, and no evidence of cellulitis. MS/ Extremity: Pulses equal, no cyanosis. Neurovascular intact. Full, normal range of motion. Psych: Awake, alert, with orientation to person, place and time. Behavior, mood, and affect are within normal limits. 10:52 ECG was reviewed by the Attending Physician. 10:52 Respiratory: mild respiratory distress is noted, Respirations: labored breathing, Breath sounds: are clear throughout, Respiratory rate: 16 Vital Signs: 09:56 BP 208 / 76; Pulse 71; Resp 16; Temp 97.8(O); Pulse Ox 100% on R/A; Weight 58.97 kg; iw Height 5 ft. 7 in. (170.18 cm); 10:01 BP 164 / 74; Pulse 72; Resp 16; Pulse Ox 100% on R/A; ll1 13:10 BP 168 / 62; Pulse 67; Resp 16; Temp 98.2; Pulse Ox 100% on R/A; ll1 14:57 BP 167 / 62; Pulse 66; Resp 15; Temp 98.5; Pulse Ox 97% on R/A; ll1 09:56 Body Mass Index 20.36 (58.97 kg, 170.18 cm) iw MDM: 10:03 Patient medically screened. [facility] 10:57 Differential diagnosis: cardiac arrhythmia, generalized weakness, idiopathic dizziness, abhishek near-syncope. Data reviewed: vital signs, nurses notes, lab test result(s), EKG, radiologic studies, plain films. Data interpreted: vehicle monitor technician: rate is 72 beats/min, rhythm is regular, Pulse oximetry: on room air is 100 %. Test interpretation: by ED physician or midlevel provider: ECG, plain radiologic studies. Counseling: I had a detailed discussion with the patient and/or guardian regarding: the historical points, exam findings, and any diagnostic results supporting the discharge/admit diagnosis, lab results, radiology results, the need for further work-up and treatment in the hospital. Physician consultation: Faizan Andrade MD and will see patient in inpatient room. 08/21 10:06 Order name: Basic Metabolic Panel [facility] 08/21 10:06 Order name: CBC with Diff [facility] 08/21 10:06 Order name: LFT's [facility] 08/21 10:06 Order name: Magnesium; Complete Time: 12:14 [facility] 08/21 10:06 Order name: NT PRO-BNP; Complete Time: 12:14 [facility] 08/21 10:06 Order name: PT-INR; Complete Time: 10:43 [facility] 08/21 10:06 Order name: Troponin (emerg Dept Use Only); Complete Time: 12:14 [facility] 08/21 10:06 Order name: Lipase; Complete Time: 12:14 [facility] 08/21 10:06 Order name: Type And Screen [facility] 08/21 10:06 Order name: Retic Count; Complete Time: 12:14 [facility] 08/21 10:06 Order name: Folic Acid,Serum (folate); Complete Time: 12:14 [facility] 08/21 10:06 Order name: B12; Complete Time: 12:14 [facility] 08/21 10:06 Order name: Ferritin; Complete Time: 12:14 [facility] 08/21 10:06 Order name: TIBC; Complete Time: 12:14 [facility] 08/21 10:06 Order name: XRAY Chest (1 view); Complete Time: 12:14 [facility] 08/21 10:06 Order name: SARS-COV-2 RT PCR (Document "Date of Onset" if Symptomatic); Complete Time: [facility] 12:14 08/21 10:06 Order name: Basic Metabolic Panel; Complete Time: 12:14 [facility] 08/21 10:06 Order name: CBC with Automated Diff; Complete Time: 12:14 [facility] 08/21 10:06 Order name: Liver (Hepatic) Function; Complete Time: 12:14 [facility] 08/21 10:33 Order name: CBC Smear Scan; Complete Time: 12:14 [facility] 08/21 10:44 Order name: PRBC [facility] 08/21 10:49 Order name: Bb Add On 08/21 10:52 Order name: Occult Blood--Ancillary bd 08/21 10:58 Order name: Packed RBC Leukored [facility] 08/21 11:22 Order name: Urine Dipstick-Ancillary; Complete Time: 12:14 [facility] 08/21 11:40 Order name: ABO/RH no charge; Complete Time: 12:14 [facility] 08/21 13:24 Order name: CT Aorta for Dissection [facility] 08/21 14:13 Order name: CT [facility] 08/21 10:06 Order name: EKG; Complete Time: 10:07 [facility] 08/21 10:06 Order name: Cardiac monitoring; Complete Time: 10:23 [facility] 08/21 10:06 Order name: EKG - Nurse/Tech; Complete Time: 10:23 [facility] 08/21 10:06 Order name: IV Saline Lock; Complete Time: 10:08 [facility] 08/21 10:06 Order name: Labs collected and sent; Complete Time: 10:08 [facility] 08/21 10:06 Order name: O2 Per Protocol; Complete Time: 10:07 [facility] 08/21 10:06 Order name: O2 Sat Monitoring; Complete Time: 10:07 [facility] 08/21 10:06 Order name: Urine Dipstick-Ancillary (obtain specimen); Complete Time: 11:28 [facility] 08/21 10:44 Order name: Transfuse; Complete Time: 14:21 [facility] 08/21 10:50 Order name: IV Saline Lock - Large Bore; Complete Time: 10:55 [facility] 08/21 11:10 Order name: Labs - recollect needed: recollect green top; Complete Time: 11:28 bd EC:52 Rate is 65 beats/min. Rhythm is regular. QRS [place] is Normal. [place] interval is normal. QRS abhishek interval is normal. QT interval is normal. No Q waves. T waves are Normal. No ST changes noted. Clinical impression: NSR w/ Non-specific ST/T Changes and No evidence of ischemia. Interpreted by me. Reviewed by me. Administered Medications: 10:32 Drug: NS 0.9% 1000 ml Route: IV; Rate: 125 ml/hr; Site: right antecubital; ll1 14:20 Follow up: Response: No adverse reaction; IV Status: Completed infusion; IV Intake: ll1 1000ml 10:32 Drug: ProTONIX (pantoprazole) 40 mg Route: IVP; Site: right antecubital; ll1 11:28 Follow up: Response: No adverse reaction ll1 11:15 Drug: ProTONIX (pantoprazole) 40 mg Route: IVP; Site: right antecubital; ll1 14:20 Follow up: Response: No adverse reaction ll1 11:15 Drug: ProTONIX (pantoprazole) 8 mg/hr Route: IV; Rate: 25 ml/hr; Site: right ll1 antecubital; 15:10 Follow up: IV Status: Infusion continued upon admission iw 11:15 Drug: SOLU-Medrol (methylPrednisoLONE) 125 mg Route: IVP; Site: right antecubital; ll1 11:28 Follow up: Response: No adverse reaction ll1 11:28 Drug: Xopenex (levalbuterol) 2.5 mg Route: Inhalation; ll1 14:21 Follow up: Response: No adverse reaction ll1 11:28 Drug: AtroVENT (ipratropium) Aerosol 0.5 mg Route: Inhalation; ll1 14:21 Follow up: Response: No adverse reaction ll1 14:14 Drug: Ativan (LORazepam) 0.5 mg Route: IVP; Site: right antecubital; ll1 15:09 Follow up: Response: No adverse reaction iw 14:44 Drug: Ativan (LORazepam) 0.5 mg Route: IVP; Site: left antecubital; ll1 15:09 Follow up: Response: No adverse reaction iw Disposition Summary: 08/21/21 11:02 Hospitalization Ordered Hospitalization Status: Inpatient Admission abhishek Provider: Juventino Richards cha Location: Telemetry/MedSurg (Inpatient) abhishek Condition: Fair abhishek Problem: new abhishek Symptoms: have improved abhishek Bed/Room Type: Standard abhishek Room Assignment: 409(08/21/21 14:23) bd Diagnosis - GI Bleed/ Gastrointestinal hemorrhage, unspecified - upper abhishek - Anemia, unspecified abhishek - Tobacco abuse counseling abhishek - Tobacco use abhishek - COPD/ Chronic obstructive pulmonary disease with (acute) exacerbation abhishek Forms: - Medication Reconciliation Form abhishek - SBAR form abhishek Signatures: Dispatcher [employer] EDMS Mindy Hunter Corey, MD MD cha Williams, Irene, RN RN iw Elton Faust RN RN ll1 Corrections: (The following items were deleted from the chart) 10:55 10:45 ABO/RH typing ordered. EDMS EDMS 10:55 10:45 Antibody Screen ordered. EDMS EDMS 14:23 11:02 abhishek bd
[2021-08-21 11:11] LABS: Anisocytosis 2+; Blood Morphology Comment NOTED (NOT SEEN); Platelet Estimate ADEQ; White Blood Cell Scan OK (OK)
[2021-08-21 11:12] LABS: Hypochromasia 2+
[2021-08-21 11:22] LABS: Urine Blood Negative (Negative); Urine Glucose Negative (Negative); Urine Protein Negative (Negative); Urine Specific Gravity 1.015 (1.005-1.030)
[2021-08-21 12:10] LABS: ALT/SGPT 18 U/L (12-78); AST/SGOT 13 U/L (15-37); Albumin 3.7 g/dL (3.4-5.0); Alkaline Phosphatase 100 U/L (45-117); BUN Blood Urea Nitrogen 9 mg/dL (7-18); Bicarbonate 25 mmol/L (21-32); Bilirubin Direct < 0.1 mg/dL (0-0.2); Bilirubin Total 0.4 mg/dL (0.2-1.0); Ferritin 5.2 ng/mL (8-388); Folic Acid, (Folate) 17.2 ng/mL (3.1-17.5); Glucose Level 114 mg/dL (74-106); Lipase 122 U/L (73-393); Magnesium 2.1 mg/dL (1.8-2.4); NT PRO-BNP 791 pg/mL (<125); Potassium 3.8 mmol/L (3.5-5.1); Protein, Total 7.6 g/dL (6.4-8.2); Sodium Level 142 mmol/L (136-145); Transferrin 358 mg/dL (200-360); Troponin (Emerg Dept Use Only) < 0.02 ng/mL (0.0-0.045)
[2021-08-21] MEDS ORDERED: NA CHLORIDE 0.9% 500 ML ONE (13:19)
[2021-08-21] MEDS ORDERED: LORazepam 2 MG/ML VIAL ONE (14:09)
--- NOTE | 2021-08-21 14:13 | RAD REPORT ---
EXAM DESCRIPTION: CT - Angio Aorta For Dissection - 08/21/2021 1:52 pm CLINICAL HISTORY: . Chest and abd pain COMPARISON: None TECHNIQUE: Computed tomography angiography of the chest, abdomen pelvis were obtained. 100 cc Isovue 370 was administered intravenously. Coronal and sagittal reconstruction were performed. MIP 3D reconstruction was performed All CT scans are performed using dose optimization technique as appropriate and may include automated exposure control or mA/KV adjustment according to patient size. FINDINGS: An aortic dissection is not seen. An aortic aneurysm is not displayed. 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 Mild narrowing celiac artery. JOANNE is patent. Coronary arteri al calcifications Diffuse atherosclerotic disease Paraseptal emphysema. Calcified lung granulomas. Mild chronic appearing interstitial lung opacities. A pericardial effusion is not seen. A pleural effusion is not noted. The liver,spleen, pancreas, adrenals and kidneys demonstrate no significant abnormality. There no evidence diverticulitis. IMPRESSION: Negative for an aortic dissection.
--- NOTE | 2021-08-21 14:31 | P.HP ---
Certification for Inpatient Patient admitted to: Observation With expected LOS: <2 Midnights Patient will require the following post-hospital care: None Practitioner: I am a practitioner with admitting privileges, knowledge of patient current condition, hospital course, and medical plan of care. Services: Services provided to patient in accordance with Admission requirements found in Title 42 Section 412.3 of the Code of Federal Regulations Patient History Date of Service: 08/21/21 Primary Care Provider: none; Cardiology-Dr. Mcfadden; GI-Dr. Andrade Reason for admission: Fatigue, dizziness History of Present Illness: 71-year-old female with history of hypertension, hyperlipidemia, peripheral vascular disease, carotid arterial disease, tobacco abuse and COPD. Patient reports having a vascular procedureright iliac artery stent placed about 2 weeks ago. She was placed on aspirin and Plavix after that time. Since that time she has been feeling weak, tired and dizzy. She had her prestidigitator obtain lab yesterday. Lab this morning showed hemoglobin low. She was sent to the ER for further evaluation. Patient denies any significant melena, coughing up blood. In the ER patient was evaluated. Hemoglobin 7.5. Prior hemoglobin in 2017 was normal. Guaiac stool positive. No active bleeding noted. Chest x-ray unremarkable. CT angiogram of the chest, abdomen and pelvis unremarkable. Patient admitted for treatment. Patient started on IV Protonix drip. Patient admitted for further evaluation and treatment. Patient reports having EGD in the past. She also reports having colonoscopy with noted rectal mass evaluated which was unremarkable. No history of bleeding in the past. Allergies No Known Allergies Allergy (Verified 12/23/17 14:26) Home medications list reviewed: Yes Home Medications: Amlodipine Besylate 10 mg PO DAILY 06/02/17 Calcium Carbonate [Calcium] 600 mg PO DAILY 06/02/17 Cholecalciferol (Vitamin D3) [Vitamin D3] 2,000 unit PO DAILY 06/02/17 Ferrous Sulfate [Iron] 325 mg PO DAILY 06/02/17 Lutein 20 mg PO DAILY 06/02/17 Omeprazole 20 mg PO DAILY 06/02/17 Simvastatin 20 mg PO DAILY 06/02/17 Vit C/E/Zn/Coppr/Lutein/Zeaxan [Preservision Areds 2 Softgel] 1 each PO DAILY 06/02/17 lisinopriL [Lisinopril] 40 mg PO DAILY 06/02/17 - Past Medical/Surgical History Diabetic: No -: Hypertension -: Hyperlipidemia -: Peripheral vascular disease -: History iliac stent -: History carotid arterectomy -: Carotid arterial disease -: Tobacco abuse -: COPD -: Iliac stent -: Carotid enterectomy Psychosocial/ Personal History: Patient lives at home - Family History Family History: Reviewed- Non-Contributory - Social History Smoking Status: Heavy Tobacco smoker (>10 cigarettes/day) Counseled patient to stop smoking for: less than 10 minutes Smoking therapy provided: Yes Patient receptive to therapy: No Alcohol use: No CD- Drugs: No Caffeine use: No Place of Residence: Home Review of Systems General: Weakness, As per HPI Eyes: Unremarkable ENT: Unremarkable Respiratory: Unremarkable Cardiovascular: Light Headedness, As per HPI Gastrointestinal: Unremarkable Genitourinary: Unremarkable Musculoskeletal: Unremarkable Integumentary: Unremarkable Neurological: Unremarkable Lymphatics: Unremarkable Physical Examination - Studies Laboratory Data (last 24 hrs) 08/21/21 11:15: Sodium 142, Potassium 3.8, BUN 9, Creatinine 0.70, Glucose 114 H, Magnesium 2.1, Total Bilirubin 0.4, AST 13 L, ALT 18, Alkaline Phosphatase 100, Lipase 122 08/21/21 10:18: PT 10.4, INR 0.91 08/21/21 10:18: WBC 6.80, Hgb 7.5 L, Hct 25.3 L, Plt Count 417 H Microbiology Data (last 24 hrs): 08/21/21 10:52 Stool Occult Blood - Final Assessment and Plan - Plan COVID: negative CXR: COMPARISON: Chest Pa And Lat (2 Views) dated 07/13/2021; CHEST PA AND LAT 2 VIEW dated 12/21/2014 FINDINGS: Lines: None. Lungs: No evidence of edema or pneumonia. Pleural: No significant pleural effusions or pneumothorax. Cardiac: The heart size is within normal limits. Bones: No acute fractures. IMPRESSION: No acute cardiopulmonary disease. CT scan Chest/Ab/Pelvis: COMPARISON: None TECHNIQUE: Computed tomography angiography of the chest, abdomen pelvis were obtained. 100 cc Isovue 370 was administered intravenously. Coronal and sagittal reconstruction were performed. MIP 3D reconstruction was performed All CT scans are performed using dose optimization technique as appropriate and may include automated exposure control or mA/KV adjustment according to patient size. FINDINGS: An aortic dissection is not seen. An aortic aneurysm is not displayed. 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 Mild narrowing celiac artery. JOANNE is patent. Coronary arterial calcifications Diffuse atherosclerotic disease Paraseptal emphysema. Calcified lung granulomas. Mild chronic appearing interstitial lung opacities. A pericardial effusion is not seen. A pleural effusion is not noted. The liver,spleen, pancreas, adrenals and kidneys demonstrate no significant abnormality. There no evidence diverticulitis. IMPRESSION: Negative for an aortic dissection. Physical exam: GENERAL: The patient is a well-developed, well-nourished, in no apparent distress. Alert and oriented x3. VITAL SIGNS: Reviewed HEENT: Head is normocephalic and atraumatic. Extraocular muscles are intact. Pupils are equal, round, and reactive to light and accommodation. Nares appeared normal. Mouth is well hydrated and without lesions. Mucous membranes are moist. NECK: Supple. No carotid bruits. No lymphadenopathy or thyromegaly. LUNGS: Clear to auscultation. No crackles or wheezes are heard. HEART: Regular rate and rhythm, no appreciable gallops, rubs, murmurs or extra heart sounds ABDOMEN: Soft, nontender, and nondistended. Positive bowel sounds. No hepatosplenomegaly was noted. EXTREMITIES: Without any cyanosis, clubbing, rash, lesions or peripheral edema. NEUROLOGIC: The patient is oriented to person, place and time. Strength and sensation are grossly intact. Face is symmetric. SKIN: Normal color, turgor and temperature. No ulcerations or rashes noted. Impression: Acute anemia likely secondary to upper GI bleed Recent iliac stent with peripheral vascular disease Hypertension Carotid arterial disease Hyperlipidemia Tobacco abuse COPD Plan: Acute anemia likely secondary to upper GI bleed: Patient admitted for further evaluation and treatment. CT angiogram of the chest, abdomen and pelvis negative. Patient with positive guaiac stool. Case discussed at length with GI and cardiology. Hold aspirin and Plavix. Patient will be transfused 2 units of blood to maintain hemoglobin above 8.0. Will start PPI drip. Will monitor closely. Clear liquids for now. We will keep the patient n.p.o. after midnight. EGD planned for tomorrow. Continue to monitor closely. Recent iliac stent with peripheral vascular disease: Patient with recent stent. Patient had been on aspirin and Plavix. Hypertension: Continue home medication of Norvasc and hydrochlorothiazide. Carotid arterial disease: Hold aspirin and Plavix. Hyperlipidemia: Continue Lipitor Tobacco abuse: Tobacco cessation addressed in detail. COPD: We will provide COPD medication Code Status: Full Code DVT prophylaxis: SCD Advanced Care Planning-30 minutes: Home at discharge Discharge Plan: Home Plan to discharge in: 48 Hours - Advance Directives Does patient have a Living Will: No Does patient have a Durable POA for Healthcare: No Time Spent Managing Pts Care (In Minutes): 55
[2021-08-21] MEDS ORDERED: IPRATROPIUM BROM 0.5MG/2.5ML NEB PRN (14:49)
[2021-08-21] MEDS ORDERED: ALBUTEROL 2.5 MG/3 ML NEB SOL NEB PRN (14:49)
[2021-08-21] MEDS ORDERED: ONDANSETRON 4 MG/2 ML VIAL IV PRN (14:49)
[2021-08-21] MEDS ORDERED: ACETAMINOPHEN 500 MG TAB PO PRN (14:49)
[2021-08-21] MEDS: NA CHLORIDE 0.9% 1,000 ML IV SCH (15:27)
[2021-08-21] MEDS: PANTOPRAZOLE INJ 80 MG in NA CHLORIDE 0.9% 250 ML IV SCH ×2 (15:28→21:51)
[2021-08-21 15:31] VITALS: BMI 20.3
[2021-08-21] MEDS ORDERED: NA CHLORIDE 0.9% 100 ML ONE (16:11)
[2021-08-21] MEDS ORDERED: HYDRALAZINE HCL 20 MG/ML VIAL IV PRN (16:30)
[2021-08-21] MEDS ORDERED: POTASSIUM CL SA 10 MEQ TAB PO ONE (18:00)
[2021-08-21] MEDS ORDERED: ATORVASTATIN 10 MG TAB PO SCH (21:00)
[2021-08-21] MEDS ORDERED: ATORVASTATIN 40 MG TAB PO SCH (21:00)
[2021-08-21] MEDS ORDERED: FUROSEMIDE 20 MG/ 2ML VIAL IV ONE (21:00)
[2021-08-21 22:04] LABS: Hematocrit 26.9 % (36.0-45.0)
[2021-08-22 04:06] LABS: Absolute Lymphocytes (CBC) 0.9 K/uL (0.7-4.9); Basophils % 0.6 % (0-1.3); Lymphocytes % 20.9 % (15.3-44.8)
[2021-08-22 04:22] LABS: BUN Blood Urea Nitrogen 6 mg/dL (7-18); Bicarbonate 24 mmol/L (21-32); Glucose Level 110 mg/dL (74-106); HDL Cholesterol 79 mg/dL (40-60); LDL Cholesterol, Calculated 59 (<130); Magnesium 2.2 mg/dL (1.8-2.4); Potassium 3.7 mmol/L (3.5-5.1); Sodium Level 142 mmol/L (136-145)
--- NOTE | 2021-08-22 06:11 | P.PN ---
Subjective Date of Service: 08/22/21 Primary Care Provider: none; Cardiology-Dr. Mcfadden; GI-Dr. Andrade Chief Complaint: Fatigue, dizziness Subjective: Improving, Doing well Physical Examination - Vital Signs Temperature: 97.5 F Blood Pressure: 179/72 Pulse: 61 Respirations: 17 Pulse Ox (%): 99 - Studies Laboratory Data (last 24 hrs) 08/21/21 11:15: Sodium 142, Potassium 3.8, BUN 9, Creatinine 0.70, Glucose 114 H, Magnesium 2.1, Total Bilirubin 0.4, AST 13 L, ALT 18, Alkaline Phosphatase 100, Lipase 122 08/21/21 10:18: PT 10.4, INR 0.91 08/21/21 10:18: WBC 6.80, Hgb 7.5 L, Hct 25.3 L, Plt Count 417 H Microbiology Data (last 24 hrs): 08/21/21 10:52 Stool Occult Blood - Final Assessment & Plan Discharge Plan: Home Plan to discharge in: 24 Hours Physician Review Additional Text: COVID: negative CXR: COMPARISON: Chest Pa And Lat (2 Views) dated 07/13/2021; CHEST PA AND LAT 2 VIEW dated 12/21/2014 FINDINGS: Lines: None. Lungs: No evidence of edema or pneumonia. Pleural: No significant pleural effusions or pneumothorax. Cardiac: The heart size is within normal limits. Bones: No acute fractures. IMPRESSION: No acute cardiopulmonary disease. CT scan Chest/Ab/Pelvis: COMPARISON: None TECHNIQUE: Computed tomography angiography of the chest, abdomen pelvis were obtained. 100 cc Isovue 370 was administered intravenously. Coronal and sagittal reconstruction were performed. MIP 3D reconstruction was performed All CT scans are performed using dose optimization technique as appropriate and may include automated exposure control or mA/KV adjustment according to patient size. FINDINGS: An aortic dissection is not seen. An aortic aneurysm is not displayed. 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 Mild narrowing celiac artery. JOANNE is patent. Coronary arterial calcifications Diffuse atherosclerotic disease Paraseptal emphysema. Calcified lung granulomas. Mild chronic appearing interstitial lung opacities. A pericardial effusion is not seen. A pleural effusion is not noted. The liver,spleen, pancreas, adrenals and kidneys demonstrate no significant abnormality. There no evidence diverticulitis. IMPRESSION: Negative for an aortic dissection. Physical exam: GENERAL: The patient is a well-developed, well-nourished, in no apparent distress. Alert and oriented x3. VITAL SIGNS: Reviewed HEENT: Head is normocephalic and atraumatic. Extraocular muscles are intact. Pupils are equal, round, and reactive to light and accommodation. Nares appeared normal. Mouth is well hydrated and without lesions. Mucous membranes are moist. NECK: Supple. No carotid bruits. No lymphadenopathy or thyromegaly. LUNGS: Clear to auscultation. No crackles or wheezes are heard. HEART: Regular rate and rhythm, no appreciable gallops, rubs, murmurs or extra heart sounds ABDOMEN: Soft, nontender, and nondistended. Positive bowel sounds. No hepatosplenomegaly was noted. EXTREMITIES: Without any cyanosis, clubbing, rash, lesions or peripheral edema. NEUROLOGIC: The patient is oriented to person, place and time. Strength and sensation are grossly intact. Face is symmetric. SKIN: Normal color, turgor and temperature. No ulcerations or rashes noted. Impression: Acute anemia likely secondary to upper GI bleed Recent iliac stent with peripheral vascular disease Hypertension Carotid arterial disease Hyperlipidemia Tobacco abuse COPD Plan: Acute anemia likely secondary to upper GI bleed: Patient transfused 2 units of blood. Hemoglobin stable. Patient will have EGD today. CT angiogram unremarkable. Case discussed with cardiology. Cardiology recommends to discontinue aspirin and Plavix. Recent iliac artery intervention with peripheral vascular disease: Patient with recent stent. Patient had been on aspirin and Plavix. Hypertension: Continue home medication of Norvasc and hydrochlorothiazide. Carotid arterial disease: No need for aspirin and Plavix at discharge Hyperlipidemia: Continue Lipitor Tobacco abuse: Tobacco cessation addressed in detail. COPD: We will recommend medication at discharge Code Status: Full Code DVT prophylaxis: SCD Advanced Care Planning-30 minutes: Home at discharge Time Spent Managing Pts Care (In Minutes): 55
[2021-08-22] MEDS: KCL 20 MEQ/100 mL IVPB 20 MEQ/100 ML BAG IV SCH ×2 (07:00→08:41)
[2021-08-22] MEDS: PANTOPRAZOLE INJ 80 MG in NA CHLORIDE 0.9% 250 ML IV SCH (08:40)
[2021-08-22] MEDS: NA CHLORIDE 0.9% 1,000 ML IV SCH (08:49)
[2021-08-22] MEDS ORDERED: THIAMINE 200 MG/2 ML INJ IVP SCH (09:00)
[2021-08-22] MEDS ORDERED: hydroCHLOROthiazide 25 MG TAB PO SCH (09:00)
[2021-08-22] MEDS ORDERED: HOME MED 1 EA UNK (Lovastatin [Lovastatin] 10 MG Tablet) PO SCH (09:00)
[2021-08-22] MEDS ORDERED: LUTEIN 20 MG PO SCH (09:00)
[2021-08-22] MEDS ORDERED: FOLIC ACID 1 MG in NA CHLORIDE 0.9% 50 ML IV SCH (09:00)
[2021-08-22] MEDS ORDERED: CYANOCOBALAMIN 1,000 MCG TAB PO SCH (09:00)
[2021-08-22] MEDS ORDERED: FOLIC ACID 5 MG/ML VIAL IVP SCH (09:00)
[2021-08-22] MEDS ORDERED: AMLODIPINE 10 MG TAB PO SCH (09:00)
[2021-08-22] MEDS ORDERED: Ringers Lactate 1,000 ML IV ONE (11:29)
--- NOTE | 2021-08-22 12:05 | EKG ---
Test Date: 2021-08-21 Test Time: 10:16:02 Retail Manager: MAURICIO MEASUREMENT RESULTS: Intervals: Rate: 65 TN: 144 QRSD: 84 QT: 452 QTc: 470 [place]: P: 57 TN: 144 QRS: 72 T: 73 INTERPRETIVE STATEMENTS: Normal sinus rhythm Nonspecific ST abnormality Abnormal ECG Compared to ECG 07/13/2021 11:11:40 ST (T wave) deviation now present Sinus arrhythmia no longer present Left ventricular hypertrophy no longer present Early repolarization no longer present Electronically Signed On 08-22-21 12:02:56 FEEDER DRIVER by Abram Mcfadden
[2021-08-22] MEDS ORDERED: propofoL 200 MG/20 ML VIAL IV ONE ×2 (12:19→12:20)
[2021-08-22] MEDS ORDERED: LIDOCAINE 1% MPF 5 ML VIAL ONE (12:20)
--- NOTE | 2021-08-22 12:51 | ENDO RPT ---
[address], [address] EGD PROCEDURE REPORT EXAM DATE: 08/22/2021 PATIENT NAME: Naida Estrada MR#: [id number] BIRTHDATE: 1950 ATTENDING: Faizan Andrade Dr STATUS: inpatient - [facility] LACER: Celia Reardon RN, Bree Ramirez, and Lidya Rodriguez CST INDICATIONS: The patient is a 71 yr old Female here for an EGD due to iron deficiency anemia and hemoccult positive stools PROCEDURE PERFORMED: EGD with biopsy MEDICATIONS: Per Anesthesia. TOPICAL ANESTHETIC: none CONSENT: The patient understands the risks and benefits of the procedure and understands that these risks include, but are not limited to: sedation, allergic reaction, infection, perforation and/or bleeding. Alternative means of evaluation and treatment include, among others: physical exam, x-rays, and/or surgical intervention. The patient elects to proceed with this endoscopic procedure. DESCRIPTION OF PROCEDURE: During intra-op preparation period all mechanical medical equipment was checked for proper function. Hand hygiene and appropriate measures for infection prevention was taken. Procedure, possible complications, and alternatives including but not limited to the possibility of bleeding, perforation, tear, infection, sepsis, need for surgery, need for blood transfusion, and anesthesia related complications were explained to the patient. After the risks, benefits and alternatives of the procedure were thoroughly explained, Informed consent was verified, confirmed and timeout was successfully executed by the treatment team. The patient was placed in the left lateral position. The patient was anesthetized with topical anesthesia. Through the anesthetized oropharyngeal area, the scope was passed without any difficulty. The Pentax EG-[id number] ([id number]) endoscope was introduced through the mouth and advanced to the third portion of the duodenum. Retroflexed views revealed a moderate sized hiatal hernia. The gastroscope was then slowly withdrawn and removed. A Schatzki's ring was found in the lower esophagus. A moderate sized hiatal hernia was found Mild gastritis was found in the antrum. Multiple biopsies were obtained and sent to pathology. Small bowel biopsies obtained with history of iron deficiency anemia. ADVERSE EVENTS: There were no complications. IMPRESSIONS: 1. Schatzki's ring in the lower esophagus 2. Moderate sized hiatal hernia 3. Mild gastritis in the antrum, s/p biopsies 4. Small bowel biopsies obtained with history of iron deficiency anemia RECOMMENDATIONS: 1. await biopsy results 2. acid suppression therapy 3. small bowel series REPEAT EXAM: Faizan Andrade Dr eSigned: Faizan Andrade Dr 08/22/2021 12:51 PM cc: CPT CODES: ICD9 CODES: PATIENT NAME: Naida Estrada MR#: [id number]
[2021-08-22] MEDS ORDERED: ACETAMINOPHEN 500 MG TAB ONE (13:03)
[2021-08-22 13:32] VITALS: O2SAT 99
[2021-08-22] MEDS ORDERED: METOCLOPRAMIDE 10 MG/2mL INJ IV SCH (14:00)
[2021-08-22] MEDS ORDERED: MAGNESIUM CITRATE 300 ML BOT PO SCH (14:00)
[2021-08-22] MEDS ORDERED: GOLYTELY 4000 ML PO SCH (14:00)
[2021-08-22 14:39] VITALS: BP 179/72; TEMP 97.5
--- NOTE | 2021-08-22 14:45 | P.DS ---
Admission Date: 08/21/21 Discharge Date: 08/22/21 Primary Care Provider: none; Cardiology-Dr. Mcfadden; GI-Dr. Andrade Disposition: ROUTINE DISCHARGE Discharge Condition: GOOD Reason for Admission: Fatigue, dizziness Consultations: Cardiology-Dr. Mcfadden GI-Dr. Andrade Procedures: COVID: negative CXR: COMPARISON: Chest Pa And Lat (2 Views) dated 07/13/2021; CHEST PA AND LAT 2 VIEW dated 12/21/2014 FINDINGS: Lines: None. Lungs: No evidence of edema or pneumonia. Pleural: No significant pleural effusions or pneumothorax. Cardiac: The heart size is within normal limits. Bones: No acute fractures. IMPRESSION: No acute cardiopulmonary disease. CT scan Chest/Ab/Pelvis: COMPARISON: None TECHNIQUE: Computed tomography angiography of the chest, abdomen pelvis were obtained. 100 cc Isovue 370 was administered intravenously. Coronal and sagittal reconstruction were performed. MIP 3D reconstruction was performed All CT scans are performed using dose optimization technique as appropriate and may include automated exposure control or mA/KV adjustment according to patient size. FINDINGS: An aortic dissection is not seen. An aortic aneurysm is not displayed. 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 Mild narrowing celiac artery. JOANNE is patent. Coronary arterial calcifications Diffuse atherosclerotic disease Paraseptal emphysema. Calcified lung granulomas. Mild chronic appearing interstitial lung opacities. A pericardial effusion is not seen. A pleural effusion is not noted. The liver,spleen, pancreas, adrenals and kidneys demonstrate no significant abnormality. There no evidence diverticulitis. IMPRESSION: Negative for an aortic dissection. EGD: Mild gastritis to the antrum, moderate hiatal hernia, schatzi's ring. Biopsies obtained. Medical Problem List: Acute anemia secondary to upper GI bleed with EGD showing mild gastritis to the antrum, moderate hiatal hernia, and schatzi's ring Recent iliac artery intervention with peripheral vascular disease Hypertension Carotid arterial disease Hyperlipidemia Tobacco abuse COPD Brief History of Present Illness: 71-year-old female with history of hypertension, hyperlipidemia, peripheral vascular disease, carotid arterial disease, tobacco abuse and COPD. Patient reports having a vascular procedureright iliac artery stent placed about 2 weeks ago. She was placed on aspirin and Plavix after that time. Since that time she has been feeling weak, tired and dizzy. She had her systems development consultant obtain lab yesterday. Lab this morning showed hemoglobin low. She was sent to the ER for further evaluation. Patient denies any significant melena, coughing up blood. In the ER patient was evaluated. Hemoglobin 7.5. Prior hemoglobin in 2017 was normal. Guaiac stool positive. No active bleeding noted. Chest x-ray unremarkable. CT angiogram of the chest, abdomen and pelvis unremarkable. Patient admitted for treatment. Patient started on IV Protonix drip. Patient admitted for further evaluation and treatment. Patient reports having EGD in the past. She also reports having colonoscopy with noted rectal mass evaluated which was unremarkable. No history of bleeding in the past. Hospital Course: Patient presented with acute anemia secondary to upper GI bleed. Patient was admitted for further evaluation and treatment. Patient was seen and evaluated by cardiology and GI. Patient had recent iliac artery intervention due to her peripheral vascular disease. Patient had been placed on aspirin and Plavix. This was held during the course of her stay. Patient was given 2 units of blood with stability in her hemoglobin. Patient found to have iron and B12 deficiency. GI performed EGD. EGD showed mild gastritis to the antrum, moderate hiatal hernia, and schatzi's ring. Biopsies obtained. At discharge no bleeding identified. At discharge patient will continue Protonix 40 mg daily. Patient will also continue with iron 325 mg 1 pill twice daily and vitamin B12 1000 mg daily as well. Cardiology recommends to discontinue aspirin and Plavix at discharge. Recommend follow-up with GI in 2 weeks to follow-up this hospitalization. Patient will follow up with GI and go over biopsy report. Patient will likely require outpatient colonoscopy in the future to further address her anemia. Recommend follow-up with cardiology in 1 to 2 weeks to follow-up this hospitalization. Recommend to recheck labCBC, iron and vitamin B12 in 2 to 4 weeks to monitor her condition. Education on GERD, hiatal hernia and schatzi ring will be provided. Patient with recent iliac artery intervention with peripheral vascular disease. Patient was also underlying hypertension, carotid arterial disease and hyperlipidemia. At discharge the patient will continue with her current medications of Norvasc 10 mg daily and hydrochlorothiazide 25 mg daily. Cardiology recommends to discontinue aspirin 81 mg daily and Plavix 75 mg daily as directed above. Recommend to maintain blood pressure less than 130/80. If blood pressure remains above 140/90 further adjustment in her medication may be considered. This can be further addressed by cardiology. Recommend follow-up with cardiology in 1 to 2 weeks to follow-up this hospitalization. Patient with hyperlipidemia. At discharge patient will continue with lovastatin 10 mg daily. Patient with tobacco abuse. Tobacco cessation addressed in detail. Patient should consider nicotine patch or other measures in the future. Patient likely with underlying COPD. Patient will be provided ProAir 2 puffs 3 times a day as needed for shortness of breath. Recommend follow-up with pulmonology or her PCP to further evaluate. Patient may require pulmonary function test in the future to further evaluate. This can be done with the help of pulmonology. Recommend follow-up with her PCP to further address. Vital Signs/Physical Exam: Temp Pulse Resp BP Pulse Ox 97.5 F 61 17 179/72 H 99 08/22/21 14:38 08/22/21 14:38 08/22/21 14:38 08/22/21 14:38 08/22/21 14:38 General: Alert, In no apparent distress, Oriented x3, Cooperative HEENT: Atraumatic Neck: Supple Respiratory: Clear to auscultation bilaterally, Normal air movement Cardiovascular: Normal pulses, Regular rate/rhythm Gastrointestinal: Normal bowel sounds, No ascites, No tenderness, No masses, No rebound, No guarding Integumentary: No tenderness/swelling Neurological: Normal speech, Normal strength at 5/5 x4 extr, Normal tone Laboratory Data at Discharge: WBC 4.40 K/uL (4.3-10.9) D 08/22/21 03:39 Hgb 8.4 g/dL (12.0-15.0) L 08/22/21 03:39 Hct 26.0 % (36.0-45.0) L 08/22/21 03:39 Plt Count 325 K/uL (152-406) D 08/22/21 03:39 PT 10.4 SECONDS (9.5-12.5) 08/21/21 10:18 INR 0.91 08/21/21 10:18 Sodium 142 mmol/L (136-145) 08/22/21 03:39 Potassium 3.7 mmol/L (3.5-5.1) 08/22/21 03:39 BUN 6 mg/dL (7-18) L 08/22/21 03:39 Creatinine 0.64 mg/dL (0.55-1.3) 08/22/21 03:39 Glucose 110 mg/dL (74-106) H 08/22/21 03:39 Magnesium 2.2 mg/dL (1.8-2.4) 08/22/21 03:39 Total Bilirubin 0.4 mg/dL (0.2-1.0) 08/21/21 11:15 AST 13 U/L (15-37) L 08/21/21 11:15 ALT 18 U/L (12-78) 08/21/21 11:15 Alkaline Phosphatase 100 U/L (45-117) 08/21/21 11:15 Triglycerides 62 mg/dL (<150) 08/22/21 03:39 Cholesterol 150 mg/dL (<200) 08/22/21 03:39 HDL Cholesterol 79 mg/dL (40-60) H 08/22/21 03:39 Cholesterol/HDL Ratio 1.90 08/22/21 03:39 Lipase 122 U/L (73-393) 08/21/21 11:15 Home Medications: Amlodipine Besylate 10 mg PO DAILY 06/02/17 Calcium Carbonate [Calcium] 600 mg PO DAILY 06/02/17 Cholecalciferol (Vitamin D3) [Vitamin D3] 2,000 unit PO DAILY 06/02/17 Lutein 20 mg PO DAILY 06/02/17 Lovastatin 1 tab PO DAILY 08/21/21 Albuterol Inhaler [Ventolin Inhaler*] 2 puff IH TID PRN #1 hfa.aer.ad 08/22/21 Cyanocobalamin [Vitamin B-12*] 1,000 mcg PO DAILY #90 tab 08/22/21 Ferrous Sulfate [Iron] 325 mg PO BID #60 tablet 08/22/21 hydroCHLOROthiazide [Hydrodiuril*] 25 mg PO DAILY #0 tab 08/22/21 New Medications: Ferrous Sulfate [Iron] 325 mg PO BID #60 tablet Albuterol Inhaler [Ventolin Inhaler*] 2 puff IH TID PRN #1 hfa.aer.ad PRN Reason: Shortness Of Breath Cyanocobalamin [Vitamin B-12*] 1,000 mcg PO DAILY #90 tab Physician Discharge Instructions: Patient presented with acute anemia secondary to upper GI bleed. Patient was admitted for further evaluation and treatment. Patient was seen and evaluated by cardiology and GI. Patient had recent iliac artery intervention due to her peripheral vascular disease. Patient had been placed on aspirin and Plavix. This was held during the course of her stay. Patient was given 2 units of blood with stability in her hemoglobin. Patient found to have iron and B12 deficiency. GI performed EGD. EGD showed mild gastritis to the antrum, moderate hiatal hernia, and schatzi's ring. Biopsies obtained. At discharge no bleeding identified. At discharge patient will continue Protonix 40 mg daily. Patient will also continue with iron 325 mg 1 pill twice daily and vitamin B12 1000 mg daily as well. Cardiology recommends to discontinue aspirin and Plavix at discharge. Recommend follow-up with GI in 2 weeks to follow-up this hospitalization. Patient will follow up with GI and go over biopsy report. Patient will likely require outpatient colonoscopy in the future to further address her anemia. Recommend follow-up with cardiology in 1 to 2 weeks to follow-up this hospitalization. Recommend to recheck labCBC, iron and vitamin B12 in 2 to 4 weeks to monitor her condition. Education on GERD, hiatal hernia and schatzi ring will be provided. Patient with recent iliac artery intervention with peripheral vascular disease. Patient was also underlying hypertension, carotid arterial disease and hyperlipidemia. At discharge the patient will continue with her current medications of Norvasc 10 mg daily and hydrochlorothiazide 25 mg daily. Cardiology recommends to discontinue aspirin 81 mg daily and Plavix 75 mg daily as directed above. Recommend to maintain blood pressure less than 130/80. If blood pressure remains above 140/90 further adjustment in her medication may be considered. This can be further addressed by cardiology. Recommend follow-up with cardiology in 1 to 2 weeks to follow-up this hospitalization. Patient with hyperlipidemia. At discharge patient will continue with lovastatin 10 mg daily. Patient with tobacco abuse. Tobacco cessation addressed in detail. Patient should consider nicotine patch or other measures in the future. Patient likely with underlying COPD. Patient will be provided ProAir 2 puffs 3 times a day as needed for shortness of breath. Recommend follow-up with pulm onology or her PCP to further evaluate. Patient may require pulmonary function test in the future to further evaluate. This can be done with the help of pulmonology. Recommend follow-up with her PCP to further address. Diet: AHA Activity: Ad doreen Followup: Faizan Andrade MD [Primary Care Provider] - Time spent managing pt's care (in minutes): 55
--- NOTE | 2021-08-22 15:20 | CON ---
Date of Consultation: 08/22/2021 Reason For Consultation: Iron-deficiency anemia with hemoglobin down as low as 6.0 prior to admissio n, MCV of 72 with ferritin of 5.2, iron saturation of 2.2%. History Of Present Illness: The patient is a 71-year-old white female with history of hypertension, hyperlipidemia, peripheral vascular disease, status post iliac femoral artery surgery recently, macul ar degeneration, carotid endarterectomy, tobacco abuse, and COPD. The patient presented to the [facility] with fatigue, dizziness, found to have a hemoglobin down to 6, MCV of 72 lower prior to admission . Ferritin later was found to be low at 5.2%, iron saturation low at 2.2%. The patient denies seein g any blood. She denies any melena, hematochezia, masses, cough, hemoptysis, hematemesis, hematuria. The patient reports that EGD and colonoscopy in approximately 2018 with a large polyp at that time for the flap was removed and internal hemorrhoids. EGD was unremarkable. On this admission, the pat mary carmen also has heme-positive stool. 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 Home Medications: Include amlodipine, calcium supplement, vitamin D3, iron, lutein, omeprazole, simv astatin, vitamin [id number], and lisinopril. Family History: Father of stroke or heart attack, vascular disease. Mother of cancer. Jeancarlos joycejohn states she had multiple cancers including breast, skin, and uterine. Social History: She is . No children. Positive for tobacco, half pack per day. Alcohol; po sitive for beer, wine, and mixed drinks. Review of Systems: The patient has fatigue, dizziness, weakness ever since July 31, 2021, iliofemoral procedure done on arteries. The patient states she has had some of these symptoms before, but nothing is marked af ter that procedure. She denies any melena, hematochezia, hematemesis, coffee-grounds emesis, hematur ia, dysuria, polydipsia, hemoptysis. Denies any back pain, muscle aches, joint aches, depression, an xiety, chest pains, seizures, syncope. Physical Examination: Vital Signs: The patient is 5 feet 7 inches, 130 pounds, BMI of 20.4 kg/m2. Temperature 99.8 degree s Fahrenheit, pulse 95, respirations 20, blood pressure 165/69, oxygen saturation 98%. General: She is a well-nourished, well-developed female, lying in bed, in no acute distress. HEENT: Normocephalic, atraumatic. Anicteric. Pupils equal, round, and reactive to light. Extraocu lar movements are intact. Oropharynx is clear. Neck: Supple. No masses. Respirations: Clear to auscultation bilaterally. Cardiac: Regular rate and rhythm. Gastrointestinal: Positive bowel sounds. Soft, nontender, nondistended. No hepatosplenomegaly. Extremities: No clubbing, cyanosis, or edema. 2+ pulses. Neuro: Alert and oriented x3. Grossly nonfocal. 5/5 motor strength. Sensation intact to light krissy ch. Laboratory Data: The patient has a white count of 4.4, hemoglobin of 8.4 from 6.0 prior to admission , MCV yesterday is 72, platelet count today of 325, polys of 65%, lymphocytes 21%, monocytes 14%. PT of 10.4, INR 0.91. The patient has a sodium 142, potassium 3.7, chloride 110, bicarb 24, BUN of 6, creatinine of 0.64, glucose 110, calcium 8.7, magnesium 2.2. Iron saturation 2.2% low, ferritin low at 5.2. Total bilirubin 0.4, direct bilirubin less than 0.1, AST of 13, ALT 18, alkaline phosphatase 102. Rapid troponin I less than 0.02. B type natriuretic peptide elevated at 791. Total protein 7 .6, albumin 3.7, triglycerides 62, cholesterol 150, LDL of 59, HDL 79, lipase 122, PSA 1.73, free T4 normal at 0.9. UA with negative. Serology revealed negative COVID-19 testing. Imaging: Chest protocol: CT chest was negative for aortic dissection. Liver, spleen, pancreas, adr enal, kidneys appeared unremarkable. No diverticulitis noted. Diffuse atherosclerotic disease noted . Mild chronic appearing interstitial lung opacities. Paraseptal emphysema was seen 75% and proxima l SMA shows mild narrowing of the celiac artery. Coronary artery calcifications noted. Impression: 1.Iron deficiency anemia with hemoglobin 6.0, up to 8.4 after transfusion, MCV low at 72. Ferritin level is 5.2, iron saturation 2.2%. No blood seen by the patient without melena, hematochezia, coffe e-ground hematuria, hemoptysis, hematemesis, or other. Colonoscopy and EGD in 2018 revealed a large polyp, internal hemorrhoids. 2.No blood seen by patient's . 3.Heme-positive stool. 4.History of hypertension, hyperlipidemia, peripheral vascular disease, ileofemoral artery procedure on July 31, 2021, with decrease in hemoglobin and marked fatigue noted since that time, macular degeneration, carotid endarterectomy, tobacco abuse, chronic obstructive pulmonary disease. Recommendations: 1.EGD. 2.Colonoscopy inpatient and outpatient. 3.Serial H and H, and transfuse p.r.n. 4.IV fluids. JOYCE/HUE Voice ID: [id number] Report ID: [id number]
== END 2021-08-22 15:30 | disposition home or self-care (01) ==
LOC: ER 09:43 → ERHOLD 12:41 → 4TH 14:57
PROVIDERS: ADMIT Family Medicine; ATTEND Family Medicine
PROC: 0DB78ZX Excision of Stomach, Pylorus, Via Natural or Artificial Opening Endoscopic, Diagnostic (ICD-10-PCS; principal; 2021-08-22 12:15)
DX: D50.9 Iron deficiency anemia, unspecified (principal); K92.2 Gastrointestinal hemorrhage, unspecified; I10 Essential (primary) hypertension; E78.5 Hyperlipidemia, unspecified; I73.9 Peripheral vascular disease, unspecified; H35.30 Unspecified macular degeneration; K29.70 Gastritis, unspecified, without bleeding; K44.9 Diaphragmatic hernia without obstruction or gangrene; K22.2 Esophageal obstruction; F17.210 Nicotine dependence, cigarettes, uncomplicated; E53.8 Deficiency of other specified B group vitamins; Z20.822 Contact with and (suspected) exposure to COVID-19
CPT/HCPCS: 93005; 85025 ×2; 80048 ×2; 36415; 86900; 83735 ×2; 86850; 88312; 85610; 85044; 80061; 86901; 80076; 88305; 82272; 84443; 85018; 85014; 81003; 84484; 84439; 82728; 82746; 82607; 83690; 83540; 83880; 84466; 71275; 74175; 71045; 99285; 43239; U0003; Q9967; J0360 ×2; J2704 ×2; J1940; J3411; C9113 ×3; J3480; G0378 ×3; P9016 ×2; J7120; J7050; J7040; J7030 ×3; J2930